=== PATIENT | male | born 1990 | race Caucasian/White ===

== ENCOUNTER 2021-06-04 06:34 | Emergency (ER) | payer BC ==
[~2021-06-04] VITALS: Ht 180.3 cm; Wt 84.1 kg
[~2021-06-04 06:34] MED LIST: CEPHALEXIN500 M1 PO; FIORICET 325 MG1 TA1 PO
[2021-06-04 06:57] VITALS: TEMP 100.5
[2021-06-04 07:46] LABS: BASO % 0.2 % (0.0-2.0); EOS % 0.1 % (0-4.0); GRAN # 7.5 (1.4-6.5); GRAN % 76.3 % (42.2-75.2); HEMATOCRIT 43.6 % (42.0-52.0); HEMOGLOBIN 14.6 g/dl (13.5-18.0); LYMPH # 1.3 (1.2-3.4); LYMPH % 13.3 % (20.0-51.0); MEAN CELL VOLUME 88 fl (80.0-100.0); MEAN CORPUSCULAR HEMOGLOBIN 29 pg (27.0-31.0); MEAN CORPUSCULAR HGB CONC 34 g/dl (33.0-37.0); MEAN PLATELET VOLUME 10.2 fl (7.4-10.4); MONO % 9.7 % (1.7-9.3); PLATELET COUNT 191 K/mm3 (130-400); RED BLOOD COUNT 4.96 M/mm3 (4.20-5.60); REDCELL DISTRIBUTION WIDTH-CV 12.6 % (11.5-14.5)
[2021-06-04 07:55] LABS: BILIRUBIN,TOTAL 0.9 mg/dL (0.0-1.0); CALCIUM 8.6 mg/dL (8.4-10.2); CREATININE, serum 0.95 (0.66-1.25); TOTAL PROTEIN 7.3 gm/dL (6.4-8.2)
[2021-06-04] MEDS ORDERED: ZITHROMAX Z PA250 MG PO (08:50)
[2021-06-04] MEDS ORDERED: ZOFRAN ODT4 MG PO (08:50)
[2021-06-04 09:16] VITALS: BP 107/67; PULSE 89
== END 2021-06-04 09:19 | disposition home or self-care (01) ==
LOC: COL.ER 06:34
PROVIDERS: Family Medicine
DX: U07.1 COVID-19 (principal)
CPT/HCPCS: J1100; J7120